=== PATIENT | female | born 1960 | race Caucasian/White ===

== ENCOUNTER 2017-08-03 21:39 | Emergency (ER) | payer OTHER ==
[~2017-08-03] VITALS: Ht 154.9 cm; Wt 95.0 kg
[~2017-08-03 21:39] MED LIST: AEROI INH; PRED20 PO; VENTAER INH; Z.0.NO CURRENT MEDS
[2017-08-03 21:45] VITALS: BP 155/110; PULSE 100; RESP 22; TEMP 97.8; O2SAT 100
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
[2017-08-03] MEDS ORDERED: TETANUS/DIPHTHERIA TOXOID ADULT 0.5 ML VIAL IM ONE (22:00)
[2017-08-03] MEDS ORDERED: IBUPROFEN 800 MG TAB PO ONE (22:00)
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
[2017-08-03] MEDS ORDERED: IBUP1TAB7 PO (22:52)
[2017-08-03 22:58] VITALS: BP 178/90; PULSE 86; RESP 16; O2SAT 99
== END 2017-08-03 23:23 | disposition home or self-care (01) ==
LOC: NEPC 21:39
DX: S20.211A Contusion of right front wall of thorax, initial encounter (principal); S40.811A Abrasion of right upper arm, initial encounter; I10 Essential (primary) hypertension; J45.909 Unspecified asthma, uncomplicated; F41.9 Anxiety disorder, unspecified; F32.9 Major depressive disorder, single episode, unspecified; K21.9 Gastro-esophageal reflux disease without esophagitis; W22.8XXA Striking against or struck by other objects, initial encounter; Z23 Encounter for immunization
CPT/HCPCS: 71101; 90471; 90714